=== PATIENT | female | born 1985 ===

== ENCOUNTER → 2023-12-13 09:15 | Outpatient (BNV) | payer OTHER, SELFPAY | PROVIDERS: Visit Provider Psychiatry & Neurology Psychiatry | DX: F41.1 Generalized anxiety disorder (principal); F41.0 Panic disorder [episodic paroxysmal anxiety]; F33.2 Major depressive disorder, recurrent severe without psychotic features; Z87.59 Personal history of other complications of pregnancy, childbirth and the puerperium; Z86.59 Personal history of other mental and behavioral disorders | CPT/HCPCS: 90792; 99213 ==

== ENCOUNTER 2023-12-31 09:00 | Outpatient (RCR) | payer OTHER, SELFPAY ==
[2023-12-13 09:43] VITALS: BMI 32.5
[2023-12-13 12:00] VITALS: BP 120/82; PULSE 88; TEMP 37.3
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
--- NOTE | 2023-12-16 14:59 | HO.PHP ---
Client's case has been opened and reviewed in team.
--- NOTE | 2023-12-21 22:19 | HO.PHPPROGNO ---
Subjective Subjective Date of Service: 12/21/23 Reason For Visit: anxiety,depression Interim History: Patient seen for follow-up. Requesting to talk about possible medication options to address anxiety. It's been beneficial talking. I feel a little scared about leaving. I wanted to tell you I needed help . She reports reflecting on her anxiety and feels she could use some help and is feeling more confortable and open to trying medication. Hydroxyzine has been helpful with some of the jitteriness she experiences with anxiety, but doesnt really help with the worrying and overthinking, or feeling like she can't control it and needs to get up and leave (a place). Reports delays in sleep onset, anxiety can reduce appetite and cause exhaustion by vamsi end of the day. DEnies any thoughts of harjming herself or others. Mental Status Exam Mental Status Exam Narrative: Alert, oriented, in no acute distress. Calm, cooperative, engaged. No psychomotor agitation or neurovegetative retardation. Eye contact maintained. Mood anxious, depressed, affect anxious. Speech normal. Thought process scattered, linear, coherent. Thought content related to stressors, feeling overwhelmed, denies any SI, intention, urge or plan. Denies any aggressive ideation. No paranoia or delusional content elicited. No evidence of psychosis. Insight and judgment fair but adequate. Diagnostics Vital Signs (24Hr): BMI result Body Mass Index 32.5 Assessment & Plan Assessment & Plan (1) Generalized anxiety disorder with panic attacks: Status: Acute Code(s): F41.1 - Generalized anxiety disorder; F41.0 - Panic disorder [episodic paroxysmal anxiety] (2) MDD (major depressive disorder), recurrent severe, without psychosis: Status: Acute Code(s): F33.2 - Major depressive disorder, recurrent severe without psychotic features (3) History of depression: Status: Acute Code(s): Z87.59 - Personal history of other complications of , childbirth and the puerperium; Z86.59 - Personal history of other mental and behavioral disorders Plan start escitalopram 5 mg tablet (start 1/2 tablet x 4-6 days then increase to one tablet) take hydroxyzine 10 mg qhs standing (for now) continue hydroxyzine 10 mg up to bid prn anxiety, sleep may consider propranolol 5-10 mg qd-bid if chest tightness/incr HR persists even with improved sleep Routine lab work considered, EKG, routine, UDS as indicated Continue to monitor Patient educated on: diagnosis and medication risk/benefits Informed Consent: understands Reason for contiued partial hosp. stay Substantial Risk for: inability to function and med/psych decompensation Certification I certify that partial hospital treatment is medically necessary due to the symptoms and problems resulting from the patient's mental illness and the failure to treat the patient at the partial hospital level of care would likely result in the patient requiring inpatient psychiatric care which could not be prevented at a less intensive level of care. Total time managing care of this patient today __30__ minutes. Discharge Plan Discharge Attending provider: Parul Millard Medications: Continued hydroxyzine HCl 10 mg Tablet 10 mg PO Q8H PRN (Reason: Anxiety) Changed escitalopram oxalate 5 mg tablet 7.5 mg PO DAILY Qty: 45 0RF clonazepam 0.5 mg tablet 0.25 - 0.5 mg PO DAILY PRN (Reason: anxiety) Qty: 20 0RF Stand Alone Forms: Patient Portal Discharge page Patient Education: Depression (DC) Print Language: New Zealander
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
== END 2023-12-31 23:59 | disposition home or self-care (01) ==
LOC: HO.PHPA 09:00
PROVIDERS: Visit Provider Psychiatry & Neurology Psychiatry
DX: F33.2 Major depressive disorder, recurrent severe without psychotic features (principal); F41.1 Generalized anxiety disorder; F41.0 Panic disorder [episodic paroxysmal anxiety]; Z87.59 Personal history of other complications of pregnancy, childbirth and the puerperium; Z86.59 Personal history of other mental and behavioral disorders; Z79.899 Other long term (current) drug therapy
CPT/HCPCS: 90791; 90853

== ENCOUNTER → 2024-04-28 09:00 | Outpatient (BNV) | payer OTHER, SELFPAY | PROVIDERS: Visit Provider Psychiatry & Neurology Psychiatry | DX: F33.2 Major depressive disorder, recurrent severe without psychotic features (principal); Z87.59 Personal history of other complications of pregnancy, childbirth and the puerperium; Z86.59 Personal history of other mental and behavioral disorders; F41.1 Generalized anxiety disorder | CPT/HCPCS: 90792 ==

== ENCOUNTER 2024-04-28 12:24 | Outpatient (REF) | payer OTHER, SELFPAY ==
[2024-04-28 12:49] LABS: MANUAL DIFF FLAG NO
[2024-04-28 12:55] LABS: Basophils Percent Auto 0.5 % (0-2); Eosinophils Absolute Auto 0.1 X10*3/uL (0.0-0.4); Eosinophils Percent Auto 1.3 % (0-4); Hematocrit 38.7 % (37.0-47.0); Hemoglobin 12.5 g/dl (12.0-16.0); Imm Gran Abs Auto 0.01 X10*3/uL (0.00-0.03); Imm Gran Pct Auto 0.2 % (0.0-0.4); Lymphocytes Absolute Auto 2.3 X10*3/uL (1.2-4.9); Lymphocytes Percent Auto 37.9 % (20-40); Mean Corpuscular HGB Conc 32.3 g/dl (31.0-35.0); Mean Corpuscular Hemoglobin 25.5 pg (27.0-33.0); Mean Corpuscular Volume 78.8 fL (80.0-98.0); Mean Platelet Volume 10.2 fL (9.4-12.3); Monocytes Absolute Auto 0.5 X10*3/uL (0.1-1.2); Monocytes Percent Auto 8.6 % (2-11); Neutrophils Absolute Auto 3.2 x10*3/uL (2.0-8.3); Neutrophils Percent Auto 51.5 % (45-73); Platelet Count 322 X10*3/uL (160-400); Red Blood Count 4.91 X10*6/uL (4.20-5.50); Red Cell Distribution Width 13.4 % (11.0-16.0); White Blood Count 6.2 X10*3/uL (4.8-10.8)
--- OUTSIDE RECORDS SUMMARY | 2024-04-28 13:17 | XMS_ITS | Clinical Summary ---
Author Organization [facility] ity Address [address] [place] [address] Care Team Providers Care Sas Statistical Programmer Name Role Phone SonAmairani brandon Primary Care Provider [phone] Surgical History Surgery Date Site/Laterality Comments WISDOM TOOTH EXTRACTION PROCEDURE: HISTORICAL WISDOM TEETH EXTRACTION OVARIAN CYST REMOVAL 05/25/2019 PROCEDURE: MS OVARIAN CYSTECTOMY UNI/BI; COMMENT: can't remember which side; returned to hospital next for internal bleeding Medical History Medical History Date Comments IBS (irritable bowel syndrome) 07/05/2017 D X:IBS (irritable bowel syndrome) Anxiety 07/05/2017 DX:Anxiety Cyst of left ovary 05/09/2019 DX:Cyst of le ft ovary Family History Medical History Relation Name Comments No Known Problems Brother 1 2 paternal No Known Problems Brother 2 1 on maternal side No Known Problems Father Hypertension Maternal Grandmother Heart failure Mother in her 50 's - unknown cause but autopsy showed heart enlarged, Hypertension, Hyperlipidemia, anxiety, depression, asthma No Known Problems Sister 1 paternal side Relation Name Status Comments Brother 1 2 paternal Alive Brother 2 1 on maternal side Alive Father Alive Maternal Grandmother Mother Sister 1 paternal side Alive Social History Tobacco Use Types Packs/Day Years Used Date Smoking Tobacco: Never Smokeless Tobacco: Never Alcohol Use Standard Drinks/Week Comments Yes 0 (1 standard drink = 0.6 oz pur e alcohol) Sex and Gender Information Value Date Recorded Sex Assigned at Not on file Gender Identity Not on file Sexual Orientation Not on file Obstetrics History Last Filed Vital Signs Vital Sign Reading Time Taken Comments Blood Pressure 120/90 05/28/2023 2:06 PM EST Sitting R Arm Pulse 81 05/28/2023 2:06 PM EST Temperature - - Respiratory Rate - - Oxygen Saturation - - Inhaled Oxygen Concentration - - Weight 74.3 kg (163 lb 12.8 oz) 05/28/2023 2:06 PM EST Height 149.9 cm (4' 11 ) 05/28/2023 2:0 6 PM EST Body Mass Index 33.08 05/28/2023 2:06 PM EST Plan of Treatment Health Maintenance Due Date Last Done Comments Hepatitis B Vaccines (1 of 3 - 19+ 3-dose series) 2004 Cervical Cancer Screening: HPV 2006 Cholesterol Screening (Lipid Panel) 02/22/2022 Depression Screening 02/22/2022 HIV Screening 02/22/2022 Hepatitis C Screening 02/22/2022 Social Influencers of Health Screening 02/22/2022 Hypertension/CHF/CAD Annual BMP Blood Test 04/20/2023 COVID-19 Vaccine (3 - 2023-2 5 season) 2023 09/15/2020, 08/25/2020 Influenza Vaccine (#1) 2023 DTaP,Tdap,and Td Vaccines (3 - Td or Tdap) 07/07/2032 07/07/2022, 05/04/2014 HIB Vaccines Aged Out No longer eligi ble based on patient's age to complete this topic HPV Vaccines Aged Out No longer eligi ble based on patient's age to complete this topic Hepatitis A Vaccines Aged Out No long er eligible based on patient's age to complete this topic IPV Vaccines Aged Out No longer eligi ble based on patient's age to complete this topic MMR Vaccines Aged Out No longer eligi ble based on patient's age to complete this topic Meningococcal ACWY Vaccine Aged Out N o longer eligible based on patient's age to complete this topic Pneumococcal Vaccine: Pediatrics (0 to 5 Years) and At-Risk Patients (6 to 64 Years) Aged Out No longer eligible b ased on patient's age to complete this topic RSV Immunization Patients Under 20 months Aged Out No longer eligible b ased on patient's age to complete this topic Varicella Vaccines Aged Out No longer eligible based on patient's age to complete this topic Care Teams Sas Statistical Programmer Relationship Specialty Start Date End Date Amairani Gonsales DO [address] [place] [id number] PCP - General 04/01/23
--- OUTSIDE RECORDS SUMMARY | 2024-04-28 13:18 | XMS_ITS ---
Author Organization [facility], Address [address] [place] [address] Care Team Providers Care Digital Design Engineer Name Role Phone Edilia Tarango [phone] ALLERGIES, ADVERSE REACTIONS, ALERTS None MEDICATIONS Medication Code Code System Start Date Stop Date Route Dosage Directions Fill Instructions Tamiflu 010312 RxNorm 04/16/2024 oral 1 Lexapro 0 RxNorm oral PROBLEMS Problem Name Code Code System Start Date End Date Stat Depression, unspecified 12927569 [facility] Active Influenza due to identified novel influenza A virus with other manifestations 836317825 [facility] 04/16/2024 Active Fever, unspecified 593288938 [facility] 04/16/2024 A ctive ENCOUNTERS Encounter Diagnosis Code Code System Date Stat Influenza due to identified novel influenza A virus with other manifestations 937278091 [facility] 04/16/2024 Active Fever, unspecified 886043903 [facility] 04/16/2024 Active IMMUNIZATIONS * None VITAL SIGNS Code Code System Vitals Name Date Value and Un its 8462-4 [facility] Blood Pressure-Diastolic 04/16/2024 77 mmHg 8480-6 [facility] Pressure-Systolic 04/16/2024 1 22 mmHg 8867-4 [facility] Heart Rate 04/16/2024 136 /min 9279-1 [facility] Respiratory Rate 04/16/2024 18 /min 8310-5 [facility] Body Temperature 04/16/2024 101.0 F 58970-5 [facility] Oxygen Saturation 04/16/2024 98 % SOCIAL HISTORY * None PROCEDURES Code Code System Procedure Date Status Notes A9150 Cpt4 PO Acetaminophen (Tylenol) (Adult) 04/16/2024 completed [place] Crow - 04/16/2024 Dose: 1000 mg. Form: tablet. Route: oral. Expiration date: 12/19/2024. Telephone Clerk Telegraph Office lot #: [id number]. [facility] #: [id number].Patient was observed for 5 minutes. Patient tolerated procedure well. Patient left room without difficulty. A9150 Cpt4 PO Ibuprofen (Motrin/Advil) (Adult) 04/16/2024 completed Albania Montoya - 04/16/2024 Dose: 600 mg. Form: tablet. Route: oral. Expiration date: 09/18/2024. Telephone Clerk Telegraph Office lot #: [id number]. [facility] #: [id number].Patient was observed for 5 minutes. Patient tolerated procedure well. Patient left room without difficulty. RESULTS Test Code Code System Description Result Value Date Ref erence Range [facility] Strep A Not Detected 04/16/2024 Not Det ected [facility] SARS-CoV-2 Not Detected 04/16/2024 Not De tected [facility] Flu A Detected 04/16/2024 Not Detect ed [facility] Flu B Not Detected 04/16/2024 Not Det ected MEDICAL EQUIPMENT * Patient has no history of implantable devices ASSESSMENT Assessment You were seen in the clinic for your flulike symptoms.Your exam was reassuring.Your flu swab was positive for A. You were prescribed Tamiflu. You are given both Tylenol Motrin while here please check your temperature again and 30 minutes to make you sure you are responding.Rest, stay well hydrated with water and electrolyte supplementation, take ftdo-gfn-tpeqrzg cold and flu medications such as decongestions for congestion and cough suppressants for cough.Take Motrin 600 mg orally every 6 hours and/or Tylenol 650mg orally every 6 hours for fever and muscle aches.Follow up with your Primary Care Physician or the clinic if not feeling better in 5-7 days.You should avoid crowds, public places, school, hotels, elderly, infants, or people with compromised immune systems until 2 days after your fevers stop.Go to the ED if you develop a severe headache, neck stiffness, intractable vomiting, trouble breathing, shortness of breath, or any other new, concerning symptoms. TREATMENT PLAN Type Description Date MEDICATION Take 75 mg capsule 04/16/2024 APPOINTMENT If not feeling tate r in 3 day(s), please see your primary care physician. If you do not have a primary care physician, please return to this clinic. 04/16/2024 Labs Tests Test Name Code Code System Date Debo (SCFA) SARS-CoV-2 & Flu A/B Multiplex Assay, Amplified Probe Molecular RT-PCR / NAAT 79845 CPT 04/16/2024 Debo (SASA) Strep A, DNA Ass ay, Amplified Probe Molecular RT-PCR / NAAT 27780 [facility] 04/16/2024 GOALS * None HEALTH CONCERNS * No Health Concerns FUNCTIONAL AND COGNITIVE STATUS Condition Type Condition Effective Dates Condition Status CONSULTATION NOTES * None DISCHARGE SUMMARY NOTES * None HISTORY AND PHYSICAL NOTES * Reason for visit - Illness Patient: DUTCH VILLAREAL, Sex: F (ID# [id number]) Date of : 1985 (38 years) Visit on 04/16/2024 (Log# [id number]) Historian: Self History of Present Illness: Patient comes into [facility] today for evaluation of flu like syndrome. Starting 4 days ago she just had runny stuffy nose, then suddenly yesterday she felt body aches and developed fevers chills and decrease in appetite. She is coughing but only intermittent and describes it as dry. She does not feels sob. She has not taken anything for her sxs- she has wanted to 'sweat it out'. She hasbeen drinking water and voiding regularly. No dizziness, headaches, or joint pain. No rashes. No abd pain, n/v/d. Has been around sick people but so far everyone at home is healthy. Complaint: The patient presents with a chief complaint of fever since 4 days ago. The patient also reports congestion, cough, headache, nasal discharge, sore throat, nasal congestion, and aches/pains as abnormal symptoms related to the complaint. Review of Systems: The patient complains of the following recent symptoms: Constitutional: fever: See HPI Neurological: headache ENT and Mouth: sore throat nasal congestion nasal discharge Respiratory: cough congestion Musculoskeletal: aches/pains Allergies: patient specifies no known allergies Medications: Lexapro: Lexapro; (oral) days; 0 refill(s); Problem List: Depression, unspecified (status Active) Surgeries: Abdominal/Pelvic surgery: : single procedure, performed 2022. Social History: Tobacco Use: denies Alcohol: denies Street / Unprescribed Drugs: denies Family History: patient specifies no conditions Vitals: 03:25 PM (04/16/2024)Temperature: 101.0 ?F, Pulse: 128 BPM, BP: 122/77, Respirations: 18/min, O2 Saturation: 95%, O2 Delivery: RAFirst entered 04/16/2024 15:25 by Pina Madrid edited 04/16/2024 15:50 by Edilia Tarango 03:50 PM (04/16/2024)Pulse: 136 BPM, Respirations: 18/min, O2 Saturation: 98%, O2 Delivery: RAFirstentered 04/16/2024 15:50 by Edilia Tarango Physical Exam: The following exam elements were documented to be abnormal: General: abnormality of general appearance noted. appears stated age, in no apparent distress, calm, abnormal weight, overweight, well-dressed, Patient appears influenza-like. The following exam elements were documented to be normal: Cardiovascular: S1, S2 noted, normal rate, regular rhythm, and no murmurs, rubs, gallop, or extra heart sounds. ENT: tympanic membranes normal bilaterally. ENT: oral mucosa without ulcer, plaque, or laceration. ENT: oropharynx and tonsils without swelling, erythema, lesion, exudate. ENT: speaks in normal voice without hoarseness. ENT: grossly visible nasal discharge absent. ENT: lips without swelling or lesion, good dentition, no gum swelling, tongue normal in appearance. Eyes: normal conjunctiva bilaterally. Lymph: no cervical lymphadenopathy. Muscular: normal active cervical range of motion noted. Muscular: normal posture. Neurological: normal cognitive function. Psychiatric: oriented and alert. Respiratory: breathing effort and rate are grossly normal, speaks in full sentences. Respiratory: no increased work of breathing. Respiratory: lungs clear to auscultation bilaterally with good air movement, no stridor, crackles, rubs, or wheezing. Skin: no visible rash/lesions. Skin: skin dry and normal in temperature. Procedures and Supplies: PO Acetaminophen (Tylenol) (Adult)Dose: 1000 mg. Form: tablet. Route: oral. Expiration date: 12/19/2024. Telephone Clerk Telegraph Office lot #: [id number]. [facility] #: [id number]. Patient was observed for 5 minutes. Patient tolerated procedure well. Patient left room without difficulty. Code(s): A9150 Ordered 04/16/2024 15:45 by Albania Montoya Completed 04/16/2024 15:46 by Albania Montoya PO Ibuprofen (Motrin/Advil) (Adult)Dose: 600 mg. Form: tablet. Route: oral. Expiration date: 09/18/2024. Telephone Clerk Telegraph Office lot #: [id number]. [facility] #: [id number]. Patient was observed for 5 minutes. Patient tolerated procedure well. Patient left room without difficulty. Code(s): A9150 Ordered 04/16/2024 15:46 by Albania Montoya Completed 04/16/2024 15:46 by Albania Montoya Labs: Debo (SCFA) SARS-CoV-2 & Flu A/B Multiplex Assay, Amplified Probe Molecular RT- PCR / NAAT Code(s): 89259 Results SARS-CoV-2: Not Detected Flu A: Detected (Alpha Abnormal) Flu B: Not Detected Wilb Debo 8 ([id number]), [facility]: [id number], Expiry: Operator: [email or web address] Order entered 04/16/2024 15:25 by Deidra Madrid Under supervision of ordering provider AUSTEN JOHNSON Completed 04/16/2024 15:25 by Deidra Madrid Reviewed 04/16/2024 15:46 by Albania Montoya Debo (SASA) Strep A, DNA Assay, Amplified Probe Molecular RT-PCR / NAAT Code(s): 64011 Results Strep A: Not Detected Wilb Debo 7 ([id number]), [facility]: [id number], Expiry: Operator: [email or web address] Order entered 04/16/2024 15:25 by Deidra Madrid Under supervision of ordering provider AUSTEN JOHNSON Completed 04/16/2024 15:25 by Deidra Madrid Reviewed 04/16/2024 15:40 by Albania Montoya Diagnoses: Influenza due to identified novel influenza A virus with other manifestations (J09.X9) Fever, unspecified (R50.9) Medication Orders: Prescribed: Tamiflu 75 mg capsule; Take 1 Capsule (oral) 2 times per day for 5 days; Total Qty: 10 (ten) Capsule; 0 refill(s); Substitutions allowed; Earliest Fill Date: 04/16/2024ePrescribed at 3:47PM on 04/16/2024 by FRANCISCO Johnsonrescription sent to [facility]/pharmacy #[id number] (P: [phone] F: [phone]) [address] [place] [address], [place], [address] Discharge Instructions: Influenza, Adult Plan: If not feeling better in 3 day(s), please see your primary care physician. If you do not have a primary care physician, please return to this clinic. Patient was ill and seen in our clinic for Patient has confirmed influenza this takes approximately5 to 7 days to recover she must be fever free for 24 hours and generally feeling better and orderedreturn; suspect much later this week. You were seen in the clinic for your flulike symptoms. Your exam was reassuring. Your flu swab was positive for A. You were prescribed Tamiflu. You are given both Tylenol Motrin while here please check your temperature again and 30 minutes to make you sure you are responding. Rest, stay well hydrated with water and electrolyte supplementation, take ycjt-vbu-hvxpopy cold andflu medications such as decongestions for congestion and cough suppressants for cough. Take Motrin 600 mg orally every 6 hours and/or Tylenol 650mg orally every 6 hours for fever and muscle aches. Follow up with your Primary Care Physician or the clinic if not feeling better in 5-7 days. You should avoid crowds, public places, school, hotels, elderly, infants, or people with compromised immune systems until 2 days after your fevers stop. Go to the ED if you develop a severe headache, neck stiffness, intractable vomiting, trouble breathing, shortness of breath, or any other new, concerning symptoms. Medical Decision Making Notes: + fever, cough, malaise consistent with viral illness such as Influenza. Temp going down, despite vitals she does not look toxic or septic. She is without GI sxs, tolerating PO fluids and voiding. Given tylenol/motrin while here, responding. She was given strict ED precautions if she feels worse. Patient not from SNF, chronically ill or immunosuppressed. Given History and Exam I have a lower suspicion for: Emergent CardioPulmonary causes [such as Acute Asthma, PE, PTX, atypical ACS, PNA. Emergent Otolaryngeal causes [such as DATA SCIENTIST, RPA, Ludwigs, Epiglottitis, EBV. Strep neg. Emergent Travel or Immunosuppressive related infectious causes[such as acute HIV, SARS, MERS. Rx: Given patient symptomatic around 48hrs will instruct on conservative self- care and techniques to reduce spread for this suspected transient and self- resolving illness and Rx for Tamiflu. Disposition: Discharge with strict return precautions. Follow up with primary care provider within 24 hours. Rx: Oseltamivir 75mg PO BID x 5 days as well as instruct on conservative self- care and techniques to reduce spread for this suspected transient and self- resolving illness. Visit discharged at 04/16/2024 3:48:19 PM by Albania Montoya PA-C Signed electronically by Albania Montoya PA-C on 04/16/2024 7:03:55 PM IMAGING NOTES * None LABORATORY REPORT NARRATIVE NOTES * None PATHOLOGY REPORT NARRATIVE NOTES * None PROGRESS NOTES * None
[2024-04-28 13:34] LABS: Estimated Average Glucose 114 mg/dL; Hemoglobin A1C 118.7323 umol/L; Hemoglobin A1c % 5.6 % (<6.0)
[2024-04-28 13:37] LABS: Alanine Aminotransferase 20 U/L (0-31); Albumin Level 3.9 g/dL (3.5-5.0); Alkaline Phosphatase 66 U/L (39-117); Anion Gap 15 (12-20); Aspartate Amino Transferase 16 U/L (5-31); Bilirubin Total 0.3 mg/dL (0.0-1.0); Blood Urea Nitrogen 6 mg/dL (9-16); C Reactive Protein 0.14 mg/dL (< or = 0.50); Carbon Dioxide 23 mmol/L (22-29); Chloride 106 mmol/L (96-108); Cholesterol 160 mg/dL (<200); Estimated Glomerular Filt Rate > 60; Glucose Random 84 mg/dL (60-115); Iron 44 mcg/dL (30-160); Magnesium 2.2 mg/dL (1.6-2.6); Percent Iron Saturation 19 % (15-50); Potassium 3.7 mmol/L (3.3-5.1); Sodium 140 mmol/L (135-145); Total Iron Binding Capacity 234 mcg/dL (228-428); Unsaturated Iron Binding 190 ug/dL
[2024-04-28 13:39] LABS: Erythrocyte Sedimentation Rate 16 MM/HR (0-20)
[2024-04-28 13:59] LABS: Free T4 (Free Thyroxine) 1.09 ng/dL (0.71-1.85); Thyroid Stimulating Hormone 0.58 uIU/mL (0.32-4.0); Vitamin D 25-OH Total 11.4 ng/mL (>30)
[2024-04-28 14:04] LABS: Folate 8.1 ng/mL (> or = 4.0); Vitamin B12 360 pg/mL (200-900)
[2024-04-28 14:08] LABS: Appearance Urine Clear; Color Urine Yellow; Glucose Urine UA Negative (Negative); Leukocyte Esterase Urine Negative (Negative); Nitrite Urine Negative (Negative); PH 6.5 (5.0-9.0); Specific Gravity - Urine <= 1.005 (1.005-1.025); Urine Blood Negative (Negative); Urine Ketones Negative (Negative); Urine Protein Negative (Neg-Trace)
[2024-04-28 14:28] LABS: Influenza A PCR NEGATIVE (Negative); Influenza B PCR NEGATIVE (Negative); Resp Syncy Virus RNA Qual PCR NEGATIVE (Negative); SARS COV2 PCR INHOUSE NEGATIVE (Negative)
[2024-04-28 14:35] LABS: UPreg QC Valid YES; Urine Pregnancy NEGATIVE (NEGATIVE)
[2024-04-29 18:53] LABS: Homocysteine 12.6 umol/L (<10.4)
[2024-05-06 12:12] LABS: Vitamin B1 7 nmol/L (8-30)
== END 2024-04-28 12:25 | disposition home or self-care (01) ==
LOC: HO.LAB 12:24
PROVIDERS: Visit Provider Psychiatry & Neurology Psychiatry
DX: F33.2 Major depressive disorder, recurrent severe without psychotic features (principal); F41.1 Generalized anxiety disorder; R05.9 Cough, unspecified
CPT/HCPCS: 0241U; 80053; 81003; 81025; 82306; 82465; 82607; 82746; 83036; 83090; 83540; 83735; 84425; 84439; 84443; 85025; 85652; 86140

== ENCOUNTER 2024-05-19 09:00 | Outpatient (RCR) | payer OTHER, SELFPAY ==
[2024-04-28 10:56] VITALS: BMI 32.9
[2024-04-28 11:23] VITALS: BP 130/90; PULSE 80; TEMP 36.6
--- NOTE | 2024-04-28 11:23 | PC.ADMIT ---
Patient is a 38 year old female who self referred to [facility] level of care d/t increased depression with passive SI and anxiety. Patient reports her living situation has changed and is currently living in a apartment with her sister with her 2 boys and sisters child. She is looking at housing options for her and her family. She also reports struggling with co-parenting her children with her ex . Patient is currently working in the evenings 15 hrs a week 3 hours a night. Patient is alert and oriented x4. Calm and cooperative. She presented with depressed mood and blunted affect. She reports passive SI when she wakes in the morning stating, I don't want to face the day. She denied any plan or intent to kill herself. She was given a copy of her safety plan if needed. She is actively trying to get out of her living situation as she is currently living with her sister which is a source of stress. Patient reports she is not taking any medications currently.
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
--- NOTE | 2024-05-04 15:32 | HO.IOP ---
Client's case has been opened and reviewed in team.
--- NOTE | 2024-05-05 23:56 | P.PNPSP_ITS ---
Subjective Subjective Date of Service: 05/05/24 Reason For Visit: anxiety,depression Interim History: Patient seen per patient request. Reports experiencing some adverse effects from Lexapro, noticing mostly headache especially in the couple hours after taking, some jitteriness noted but improving.ROS otherwise negative. She was recently on Lexapro (following last PHP) and was tolerating 7.5 mg,benefitting from it as well. I suggest perhaps we moved up to quickly and suggest splitting dose into 2.5 mg BID. Med compliant. No substance use. Eating/drinking regularly. Sleep stable, denies any acute mood issues. Denies hopelessness or SI. Medication Compliance: Yes Side effects from medications: Yes (as noted above) Attending Groups: Yes Review of Systems Acute medical concerns: No Mental Status Exam Mental Status Exam Narrative: Cooperative, pleasant. Polite. Alert, oriented. Mood anxious. Calm. Normal speech. No evidence of thought disorder. Goal-directed. Denies any hopelessness or SI. No HI. No AVH. Insight good. Judgment intact. Diagnostics Vital Signs (24Hr): BMI result Body Mass Index 32.9 Assessment & Plan Assessment & Plan (1) MDD (major depressive disorder), recurrent severe, without psychosis: Status: Acute Code(s): F33.2 - Major depressive disorder, recurrent severe without psychotic features (2) History of depression: Status: Acute Code(s): Z87.59 - Personal history of other complications of , childbirth and the puerperium; Z86.59 - Personal history of other mental and behavioral disorders (3) WANDA (generalized anxiety disorder): Status: Acute Code(s): F41.1 - Generalized anxiety disorder (4) Vitamin D deficiency: Status: Acute Code(s): E55.9 - Vitamin D deficiency, unspecified (5) Thiamine deficiency, unspecified: Status: Acute Code(s): E51.9 - Thiamine deficiency, unspecified Plan continue IOP cont escitalopram 5 mg/d (will split 2.5 mg BID for now) - previous dose 7.5 mg continue with hydroxyzine 10 mg qd Reviewed routine lab work: negative COVID, influenza. deficiencies in Vit D at 11, as well as thiamine 7 Will plan to discuss with patient next week - will discuss supplementation. EKG, routine, UDS as indicated VS reviewed: abrefile, BP 130/90;?80 bpm (on 04/28) Continue to monitor as per protocol Patient educated on: diagnosis, medication risk/benefits and medical condition (some nutritional deficiencies as noted) Informed Consent: understands Reason for contiued partial hosp. stay Substantial Risk for: med/psych decompensation Certification I certify that the patient needs IOP Services for a minimum of 9 hours per week of therapeutic services. I certify the patient is experiencing symptoms of such intensity that they are unable to be safely treated in a less intensive setting and would otherwise require?admission to a more intensive level of care. Total time managing care of this patient today __30__ minutes. Discharge Plan Discharge Attending provider: Parul Millard Medications: New escitalopram oxalate 5 mg tablet 5 mg PO DAILY Qty: 14 0RF ergocalciferol (vitamin D2) [Vitamin D2] 1,250 mcg (50,000 unit) capsule 1,250 mcg PO QWEEK Qty: 12 0RF Continued thiamine HCl (vitamin B1) 100 mg capsule 100 mg PO BID Qty: 60 0RF Stand Alone Forms: Patient Portal Discharge page Print Language: Greenlandic
--- NOTE | 2024-05-11 08:30 | HO.PHP ---
Juany is not scheduled to be in attendance to program today.
--- NOTE | 2024-05-12 08:30 | HO.PHP ---
PHP Admin, Shawna, informed the team that Juany will not be in attendance to program today due to not feeling well. Juany reported no safety concerns.
--- NOTE | 2024-05-14 19:11 | PM.EVENT ---
Event Note Date of Service: 05/12/24 Event Note: Patient was scheduled to meet with provider but called out of program today. Time Spent With Patient Time: Total time managing care of this patient today ____ minutes.
--- NOTE | 2024-05-16 15:16 | P.EN_ITS ---
Event Note Date of Service: 05/18/24 Event Note: Reached out to patient who has been unable to attend program due to sickness and has been discharged. SHe says she is doing okay, she is hoem with her children who are also sick. She sounds upbeat and expressed appreciation for the program and says she will reach out if she feels she is still needing the program once she is recovered from being sick. Presently she says her mood is okay , denies any acute issues or concerns. Denies any thoughts of givin up on life. Anxiety manageable. Denies SI, HI, AH, VH. We reviewed recent lab work. Patient is deficient for vitamin D, and also border line for thiamine. I have sent in supplements as well as refills on medication. She is tolerating Lexapro at 2.5 mg qd and feels this is helping her and would like to remain at that dose. She agrees to call if she has any issues or questions. She has upcoming provider ap pointments. Time Spent With Patient Time: Total time managing care of this patient today __20__ minutes.
== END 2024-05-19 23:59 | disposition home or self-care (01) ==
LOC: HO.IOP 09:00
PROVIDERS: Visit Provider Psychiatry & Neurology Psychiatry
DX: F33.2 Major depressive disorder, recurrent severe without psychotic features (principal); F41.1 Generalized anxiety disorder; E55.9 Vitamin D deficiency, unspecified; E51.9 Thiamine deficiency, unspecified; Z87.59 Personal history of other complications of pregnancy, childbirth and the puerperium; Z79.899 Other long term (current) drug therapy
CPT/HCPCS: 90791; S9480